=== PATIENT | female | born 1985 | race Caucasian/White ===

== ENCOUNTER 2024-04-21 12:37 | Emergency (ER) | payer MEDICAID, SELFPAY ==
[2024-04-21 12:38] VITALS: BMI 27.8
--- NOTE | 2024-04-21 14:56 | PC.NURSE ---
PT CALLED BACK TO [facility]. NO RESPONSE X2 @ [phone]
--- NOTE | 2024-04-21 15:05 | PC.NURSE ---
No answer when called from Triage.
--- NOTE | 2024-04-21 15:15 | PC.NURSE ---
No answer when called from Triage.
== END 2024-04-21 15:15 | disposition left against medical advice (07) ==
LOC: SERX 15:27
PROVIDERS: Emergency Provider Emergency Medicine
DX: Z53.21 Procedure and treatment not carried out due to patient leaving prior to being seen by health care provider (principal)